=== PATIENT | female | born 1945 | race Caucasian/White ===

== ENCOUNTER 2020-10-22 12:59 | Emergency (ER) | payer MEDICARE ==
[~2020-10-22] VITALS: Ht 167.6 cm; Wt 101.7 kg
[2020-10-22] MEDS ORDERED: ONDANSETRON HCL 4 MG ORAL DISINTEGRATING TAB PO ONE (13:45)
[2020-10-22] MEDS ORDERED: KETOROLAC TROMETHAMINE 30 MG/ML VIAL IM ONE (13:45)
[2020-10-22] MEDS ORDERED: HYDROCODONE/APAP 5MG-325MG TAB PO ONE (13:45)
[2020-10-22] MEDS ORDERED: ACETAMINOPHEN500 MG PO (13:52)
[2020-10-22] MEDS ORDERED: ULTRAM 50MG50 MG PO (13:52)
[2020-10-22 14:40] VITALS: BP 144/83
== END 2020-10-22 14:39 | disposition home or self-care (01) ==
LOC: FSED 13:45
DX: S83.92XA Sprain of unspecified site of left knee, initial encounter (principal); M17.12 Unilateral primary osteoarthritis, left knee; I10 Essential (primary) hypertension; E11.9 Type 2 diabetes mellitus without complications; E78.5 Hyperlipidemia, unspecified; M54.9 Dorsalgia, unspecified; G89.29 Other chronic pain
CPT/HCPCS: 73562; 96372; 99284; J1885; Q0162

== ENCOUNTER 2021-01-29 11:19 | Emergency (ER) | payer MEDICARE, OTHER ==
[~2021-01-29] VITALS: Ht 167.6 cm; Wt 101.6 kg
[~2021-01-29 11:19] MED LIST: ACETAMINOPHEN500 MG PO; ULTRAM 50MG50 MG PO
[2021-01-29] MEDS ORDERED: ACETAMINOPHEN 325 MG TAB PO ONE (12:00)
[2021-01-29] MEDS ORDERED: IBUPROFEN 600 MG TAB PO ONE (12:30)
[2021-01-29] MEDS ORDERED: IBUPROFEN IB200 MG PO (12:38)
[2021-01-29] MEDS ORDERED: ULTRAM 50MG50 MG PO (12:38)
[2021-01-29] MEDS ORDERED: ACETAMINOPHEN500 MG PO (12:38)
[2021-01-29] MEDS ORDERED: IBUPROFEN 600 MG TAB ONE (13:50)
[2021-01-29] MEDS ORDERED: ACETAMINOPHEN 325 MG TAB ONE (13:51)
== END 2021-01-29 14:18 | disposition home or self-care (01) ==
LOC: FSED 11:23
DX: S93.402A Sprain of unspecified ligament of left ankle, initial encounter (principal); S93.401A Sprain of unspecified ligament of right ankle, initial encounter; M19.072 Primary osteoarthritis, left ankle and foot; M19.071 Primary osteoarthritis, right ankle and foot; W01.0XXA Fall on same level from slipping, tripping and stumbling without subsequent striking against object, initial encounter; Y92.008 Other place in unspecified non-institutional (private) residence as the place of occurrence of the external cause; I10 Essential (primary) hypertension; E11.9 Type 2 diabetes mellitus without complications; E78.5 Hyperlipidemia, unspecified; M54.9 Dorsalgia, unspecified; G89.29 Other chronic pain
CPT/HCPCS: 99283